=== PATIENT | male | born 1970 | race African-American/Black ===

== ENCOUNTER 2020-06-03 20:59 | Emergency (ER) | payer MEDICAID ==
[~2020-06-03] VITALS: Ht 177.8 cm; Wt 88.0 kg
[2020-06-03 22:20] LABS: EOSINOPHILS % 4.1 % (0.0-5.0); HEMATOCRIT. 45.1 % (42.0-52.0); HEMOGLOBIN. 14.6 g/dL (14.0-18.0); LYMPHOCYTES % 42.6 % (20.0-50.0); MEAN CORPUSCULAR HEMOGLOBIN 29.2 pg (28.0-32.0); MEAN CORPUSCULAR VOLUME 90.2 fL (80.0-94.0); MEAN PLATELET VOLUME 9.6 fl (7.4-10.4); MONOCYTES % 8.1 % (2.0-8.0); NEUTROPHILS % 44.2 % (40.0-76.0); PLATELET 182 x1000/uL (130-400); RED BLOOD CELL COUNT 4.99 mill/uL (4.7-6.1); RED CELL DISTRIBUTION WIDTH 14.4 % (11.6-14.6)
[2020-06-03 22:25] LABS: CHLORIDE 107 mEq/L (98-107)
[2020-06-03 23:55] VITALS: BP 135/80
== END 2020-06-04 | disposition home or self-care (01) ==
LOC: ER 20:59
DX: R07.89 Other chest pain (principal); I10 Essential (primary) hypertension
CPT/HCPCS: 36415; 71045; 80053; 84484; 85025; 93005; 99285

== ENCOUNTER 2020-06-05 18:29 | Inpatient (IN) | payer MEDICAID ==
[~2020-06-05] VITALS: Ht 177.8 cm; Wt 96.6 kg
[2020-06-05] MEDS ORDERED: NITROGLYCERIN 0.4MG TABLET SL SL PRN (20:00)
[2020-06-05] MEDS ORDERED: ASPIRIN 81MG TABLET PO ONE (20:00)
[2020-06-05 20:26] LABS: CHLORIDE 107 mEq/L (98-107); D-DIMER < 0.19 mg/L FEU (<0.50); PARTIAL THROMBOPLASTIN TIME 25.9 sec (23.4-31.0); PROTHROMBIN TIME 10.9 sec (9.6-11.0)
[2020-06-05 20:33] LABS: BASOPHILS % 1.1 % (0.0-2.0); EOSINOPHILS % 5.3 % (0.0-5.0); HEMATOCRIT. 42.1 % (42.0-52.0); HEMOGLOBIN. 14.2 g/dL (14.0-18.0); LYMPHOCYTES % 49.7 % (20.0-50.0); MEAN CORPUSCULAR HEMOGLOBIN 31.1 pg (28.0-32.0); MEAN CORPUSCULAR VOLUME 91.9 fL (80.0-94.0); MEAN PLATELET VOLUME 9.6 fl (7.4-10.4); MONOCYTES % 7.5 % (2.0-8.0); NEUTROPHILS % 36.4 % (40.0-76.0); PLATELET 173 x1000/uL (130-400); RED BLOOD CELL COUNT 4.58 mill/uL (4.7-6.1); RED CELL DISTRIBUTION WIDTH 14.5 % (11.6-14.6)
[2020-06-06 01:30] VITALS: BP 130/76
[2020-06-06] MEDS ORDERED: CLONIDINE 0.1MG TABLET PO PRN (02:30)
[2020-06-06] MEDS ORDERED: ASPI-1497 MT (03:02)
[2020-06-06] MEDS ORDERED: ATOR10TA PO (03:02)
[2020-06-06 04:00] VITALS: BP 110/63
[2020-06-06] MEDS ORDERED: CLONIDINE 0.1MG TABLET PO SCH (04:00)
[2020-06-06] MEDS: NITROGLYCERIN OINT 1GM/INCH UDPKT TD SCH ×2 (06:01→13:42)
[2020-06-06 06:51] LABS: CHLORIDE 109 mEq/L (98-107)
[2020-06-06 08:12] VITALS: BP 117/72
[2020-06-06] MEDS ORDERED: ENOXAPARIN 40MG/0.4ML SYR SUBCUT SCH (09:00)
[2020-06-06 09:03] LABS: BASOPHILS % 1.3 % (0.0-2.0); EOSINOPHILS % 6.4 % (0.0-5.0); HEMOGLOBIN. 13.8 g/dL (14.0-18.0); LYMPHOCYTES % 45.1 % (20.0-50.0); MEAN CORPUSCULAR HEMOGLOBIN 28.3 pg (28.0-32.0); MEAN CORPUSCULAR VOLUME 86.1 fL (80.0-94.0); MEAN PLATELET VOLUME 9.6 fl (7.4-10.4); MONOCYTES % 9.9 % (2.0-8.0); NEUTROPHILS % 37.3 % (40.0-76.0); PLATELET 142 x1000/uL (130-400); RED BLOOD CELL COUNT 4.88 mill/uL (4.7-6.1); RED CELL DISTRIBUTION WIDTH 14.3 % (11.6-14.6)
[2020-06-06 12:16] VITALS: BP 104/55
[2020-06-06 13:53] VITALS: BP 104/54
[2020-06-07] MEDS ORDERED: ASPIRIN 81MG TABLET PO SCH (09:00)
[2020-06-07] MEDS ORDERED: ENOXAPARIN 30MG/0.3ML SYR SUBCUT SCH (09:00)
== END 2020-06-06 15:28 | disposition home or self-care (01) | DRG 203 ==
LOC: ER 18:29 → 6WST 22:47 → ENRESERV 23:37
PROVIDERS: ADMIT Internal Medicine; ATTEND Internal Medicine
DX: M94.0 Chondrocostal junction syndrome [Tietze] (principal); F17.210 Nicotine dependence, cigarettes, uncomplicated; J44.9 Chronic obstructive pulmonary disease, unspecified; I10 Essential (primary) hypertension
CPT/HCPCS: 36415; 71045; 80048; 80053; 83880; 84484; 85025; 85379; 93005; 99285; J1650

== ENCOUNTER 2020-09-22 01:46 | Emergency (ER) | payer MEDICAID ==
[~2020-09-22] VITALS: Ht 177.8 cm; Wt 91.0 kg
[~2020-09-22 01:46] MED LIST: ASPI-1497 MT; ATOR10TA PO
[2020-09-22 05:17] LABS: BASOPHILS % 0.1 % (0.0-2.0); EOSINOPHILS % 7.5 % (0.0-5.0); HEMOGLOBIN. 13.9 g/dL (14.0-18.0); LYMPHOCYTES % 51.2 % (20.0-50.0); MEAN CORPUSCULAR HEMOGLOBIN 28.2 pg (28.0-32.0); MEAN CORPUSCULAR VOLUME 87.3 fL (80.0-94.0); MEAN PLATELET VOLUME 8.5 fl (7.4-10.4); MONOCYTES % 8.6 % (2.0-8.0); NEUTROPHILS % 32.6 % (40.0-76.0); PLATELET 235 x1000/uL (130-400); RED BLOOD CELL COUNT 4.92 mill/uL (4.7-6.1); RED CELL DISTRIBUTION WIDTH 14.2 % (11.6-14.6)
[2020-09-22 05:24] LABS: CHLORIDE 109 mEq/L (98-107)
[2020-09-22] MEDS ORDERED: HYDROCODONE/ACETAMINOPHEN 5/325MG TABLET PO ONE (06:00)
[2020-09-22] MEDS ORDERED: ASPIRIN 325MG EC TABLET PO NR (06:00)
[2020-09-22 07:59] VITALS: BP 115/62
== END 2020-09-22 08:02 | disposition home or self-care (01) ==
LOC: ER 01:46
DX: R07.89 Other chest pain (principal); F12.10 Cannabis abuse, uncomplicated; E78.00 Pure hypercholesterolemia, unspecified
CPT/HCPCS: 36415; 71045; 80053; 83880; 84484; 85025; 93005; 99285

== ENCOUNTER 2022-06-23 03:41 | Emergency (ER) | payer MEDICAID ==
[~2022-06-23] VITALS: Ht 177.8 cm; Wt 91.0 kg
[2022-06-23 03:48] VITALS: BP 141/88
[2022-06-23] MEDS ORDERED: MORPHINE SULFATE 4 MG/ML CPJ (NOT FOR IM USE) IV STA (05:49)
[2022-06-23 06:30] LABS: BASOPHILS % 1.3 % (0.0-2.0); EOSINOPHILS % 2.3 % (0.0-5.0); HEMATOCRIT. 44.5 % (42.0-52.0); HEMOGLOBIN. 15.4 g/dL (14.0-18.0); LYMPHOCYTES % 31.9 % (20.0-50.0); MEAN CORPUSCULAR HEMOGLOBIN 32.6 pg (28.0-32.0); MEAN PLATELET VOLUME 8.4 fl (7.4-10.4); MONOCYTES % 9.4 % (2.0-8.0); NEUTROPHILS % 55.1 % (40.0-76.0); PLATELET 251 x1000/uL (130-400); RED BLOOD CELL COUNT 4.74 mill/uL (4.7-6.1); RED CELL DISTRIBUTION WIDTH 14.6 % (11.6-14.6)
[2022-06-23 06:33] LABS: PROTHROMBIN TIME 10.9 sec (9.6-11.0)
[2022-06-23 06:43] LABS: CHLORIDE 110 mEq/L (98-107)
[2022-06-23 08:41] LABS: CLARITY URINE CLEAR (CLEAR); COLOR URINE YELLOW (YELLOW); KETONES URINE NEGATIVE (NEGATIVE); LEUKOCYTE ESTERASE URINE NEGATIVE (NEGATIVE); NITRITE URINE NEGATIVE (NEGATIVE); OCCULT BLOOD URINE NEGATIVE (NEGATIVE); PH URINE 5.5 (4.5-8.0); PROTEIN URINE NEGATIVE (NEGATIVE); SPECIFIC GRAVITY URINE 1.024 (1.005-1.030)
[2022-06-23] MEDS ORDERED: MORPHINE SULFATE 4 MG/ML CPJ (NOT FOR IM USE) IV NR (09:30)
[2022-06-23] MEDS ORDERED: ONDA4TAB50 PO (09:37)
[2022-06-23] MEDS ORDERED: TOPUD PO (09:37)
== END 2022-06-23 10:03 | disposition home or self-care (01) ==
LOC: ER 03:41
DX: K80.20 Calculus of gallbladder without cholecystitis without obstruction (principal)
CPT/HCPCS: 36415; 74176; 76705; 80053; 81003; 83690; 84484; 85025; 85610; 93005; 96374; 99285; J2270

== ENCOUNTER 2022-09-04 17:48 | Emergency (ER) | payer MEDICAID ==
[~2022-09-04] VITALS: Ht 175.3 cm; Wt 94.0 kg
[~2022-09-04 17:48] MED LIST changes: +ONDA4TAB50 PO; +TOPUD PO
[2022-09-04 17:52] VITALS: BP 146/78
[2022-09-04 18:46] LABS: CHLORIDE 111 mEq/L (98-107)
[2022-09-04 19:33] LABS: BASOPHILS % 2.4 % (0.0-2.0); EOSINOPHILS % 4.7 % (0.0-5.0); HEMATOCRIT. 41.5 % (42.0-52.0); HEMOGLOBIN. 13.5 g/dL (14.0-18.0); LYMPHOCYTES % 57.6 % (20.0-50.0); MEAN CORPUSCULAR HEMOGLOBIN 28.6 pg (28.0-32.0); MEAN CORPUSCULAR VOLUME 87.7 fL (80.0-94.0); MEAN PLATELET VOLUME 9.1 fl (7.4-10.4); MONOCYTES % 9.3 % (2.0-8.0); PLATELET 154 x1000/uL (130-400); RED BLOOD CELL COUNT 4.73 mill/uL (4.7-6.1)
== END 2022-09-04 23:13 | disposition home or self-care (01) ==
LOC: ER 17:48
DX: R07.89 Other chest pain (principal); M79.661 Pain in right lower leg; E78.00 Pure hypercholesterolemia, unspecified; Z79.82 Long term (current) use of aspirin
CPT/HCPCS: 36415; 71045; 80053; 84484; 85025; 93005; 93971; 99285

== ENCOUNTER 2024-11-11 17:31 | Emergency (ER) | payer MEDICAID ==
[~2024-11-11] VITALS: Ht 177.8 cm; Wt 93.0 kg
[~2024-11-11 17:31] MED LIST changes: +AMLO-905 MT; -ATOR10TA PO; +ATOR20TA PO; +LOSA1TAB34 MT; +NAPR-681 MT; -ONDA4TAB50 PO; -TOPUD PO
[2024-11-11 17:37] VITALS: O2SAT 99
[2024-11-11] MEDS ORDERED: CEPH500C2 MT (18:09)
[2024-11-11] MEDS ORDERED: IBUP-2028 MT (18:09)
[2024-11-11] MEDS ORDERED: BO1 TP (18:09)
[2024-11-11] MEDS ORDERED: ACET-2708 MT (18:09)
[2024-11-11] MEDS: KETOROLAC 30MG/ML VIAL IM ONE (18:15)
[2024-11-11 18:17] VITALS: BP 149/94; PULSE 87; RESP 16; TEMP 36.9; O2SAT 99
== END 2024-11-11 18:18 | disposition home or self-care (01) ==
LOC: ER 17:46
DX: L02.416 Cutaneous abscess of left lower limb (principal); E78.00 Pure hypercholesterolemia, unspecified; Z79.899 Other long term (current) drug therapy; Z79.82 Long term (current) use of aspirin
CPT/HCPCS: 99283; 96372; J1885